=== PATIENT | female | born 1995 | race Caucasian/White ===

== ENCOUNTER 2025-01-20 20:34 | Emergency (ER) | payer SELFPAY ==
[~2025-01-20] VITALS: Ht 172.7 cm; Wt 63.5 kg
[2025-01-20 22:34] LABS: APPEARANCE,URINE CLOUDY (CLEAR); BLOOD, URINE 2+ Ery/uL (NEGATIVE); LEUKOCYTE ESTERASE ,URINE 3+ (NEGATIVE); NITRITE, URINE POSITIVE (NEGATIVE); UGLUCOSE NEGATIVE (NEGATIVE)
[2025-01-20 22:55] LABS: ADD URINE CULTURE YES; SQUAMOUS EPITHELIAL CELL,UR Few /HPF (None Seen); YEAST,URINE Few /HPF (None Seen)
[2025-01-20 23:05] LABS: PLATELET COUNT (AUTO) 298 K/uL (150-450); RED BLOOD CELL COUNT(AUTO) 4.84 MIL/uL (4.0-5.2); RED CELL DISTRIBUTION WIDTH 13.9 % (11.5-15.0); WHITE BLOOD COUNT (AUTO) 15.2 K/uL (4.3-11.0)
[2025-01-20 23:14] LABS: CALCIUM, SERUM 9.0 mg/dL (8.5-10.1); CREATININE 0.8 mg/dL (0.6-1.3); SODIUM SERUM 138.0 mmol/L (136-145); UREA NITROGEN, BLOOD 11.0 mg/dL (7-18)
[2025-01-20 23:18] LABS: ASPARTATE AMINOTRANSFERASE 10.0 U/L (15-37); TOTAL PROTEIN, SERUM 7.2 g/dL (6.4-8.2)
[2025-01-20 23:26] LABS: PREGNANCY TEST SERUM QUAN 1.0 mIU/mL (0-6)
[2025-01-20] MEDS ORDERED: KETOROLAC TROMETHAMINE INJ 30 MG/ML VIAL ONE (23:39)
[2025-01-20] MEDS: KETOROLAC TROMETHAMINE INJ 30 MG/ML VIAL IM ONE (23:40)
[2025-01-21] MEDS ORDERED: NITR100C6 PO (01:06)
[2025-01-21] MEDS ORDERED: FLUCONAZOLE (100 MG) 100 MG TABLET ONE (01:17)
[2025-01-21] MEDS ORDERED: NITROFURANTOIN/MONOHYDRATE MACROCRYSTALS 100 MG CAPSULE ONE (01:17)
[2025-01-21] MEDS: NITROFURANTOIN/MONOHYDRATE MACROCRYSTALS 100 MG CAPSULE PO ONE (01:23)
[2025-01-21] MEDS: FLUCONAZOLE (100 MG) 100 MG TABLET PO ONE (01:23)
[2025-01-21 01:28] VITALS: BP 118/64; TEMP 98.7; O2SAT 97
== END 2025-01-21 01:29 | disposition home or self-care (01) ==
LOC: ER 20:38
DX: N39.0 Urinary tract infection, site not specified (principal); R10.2 Pelvic and perineal pain
CPT/HCPCS: 99285; 74176; 96372; 85025; 80048; 83690; 80076; 81001; 36415; 84702; J1885; 87086-TC